=== PATIENT | female | born 1955 | race Caucasian/White ===

== ENCOUNTER 2018-11-16 11:25 | Day surgery (SDC) | payer MEDICARE, OTHER ==
[~2018-11-16] VITALS: Ht 157.5 cm; Wt 76.6 kg
[~2018-11-16 11:25] MED LIST: OSTEOPOROSIS MED PO
--- NOTE | 2018-11-16 13:14 | PREAC ---
Date/Time of Note Date/Time of Note DATE: 11/16/18 TIME: 13:13 Anesthesia Eval and Record Evaluation Time Pre-Procedure Interview DATE: 11/16/18 TIME: 13:13 Age 63 Sex female NPO: 8 hrs Preoperative diagnosis abd pain Planned procedure egd, colonoscopy Past Medical History Past Medical History: Includes GI: Obesity Surgery & Anesthesia Issues No known issue Meds Anticoagulation: No Beta Danny within 24 hr: No Reason Beta Danny not given: Pt. not on B-Danny Reported Medications [Osteoporosis Med] No Conflict Check, PO 05/15/14 Meds reviewed: Yes Allergies Coded Allergies: No Known Allergy (Unverified , 05/15/14) Allergies Reviewed: Yes Labs/Studies Labs Reviewed: Reviewed by anesthesiologist test: Negative Studies: ECG Pre-procedure Exam Airway: Adequate mouth opening, Adequate thyromental dist Mallampati: Mallampati II Teeth: Normal Lung: Normal Heart: Normal ASA Physical Status ASA physical status: 2 Emergency: None Planned Anesthetic General/MAC: Mask Pre-operative Attestations Prior to commencing anesthesia and surgery, the patient was re-evaluated, there was verification of: *The patient's identity *The results of appropriate recent lab work and preoperative vital signs *The above evaluation not changing prior to induction *Anesthetic plan, risk benefits, alternative and complications discussed with patient/family; questions answered; patient/family understands, accepts and wishes to proceed. TAAT VALDEZ Nov 16, 2018 13:14
[2018-11-16 13:24] VITALS: Ht 157.5 cm; Wt 76.6 kg
[2018-11-16 13:44] VITALS: BP 141/72; PULSE 79; RESP 12
[2018-11-16 14:59] VITALS: BP 143/91; RESP 18
--- NOTE | 2018-11-16 15:32 | PAC ---
Date/Time of Note Date/Time of Note DATE: 11/16/18 TIME: 15:32 Post-Anesthesia Notes Post-Anesthesia Note Last documented vital signs Vital Signs Date Temp Pulse Resp B/P (MAP) Pulse Ox O2 O2 Flow FiO2 Time Delivery Rate 11/16/18 18 143/91 95 14:59 (108) 11/16/18 79 Room Air 13:44 Activity: WNL Respiratory function: WNL Cardiovascular function: WNL Mental status: Baseline Pain reasonably controlled: Yes Hydration appropriate: Yes Nausea/Vomiting absent: Yes TATA VALDEZ Nov 16, 2018 15:32
== END 2018-11-16 15:01 | disposition home or self-care (01) ==
LOC: GIL 11:25
PROVIDERS: ATTEND Internal Medicine Gastroenterology
DX: R19.4 Change in bowel habit (principal); D12.5 Benign neoplasm of sigmoid colon; K64.8 Other hemorrhoids; K29.50 Unspecified chronic gastritis without bleeding
CPT/HCPCS: 88305; 88312